=== PATIENT | male | born 1960 | race Caucasian/White ===

== ENCOUNTER 2016-06-22 16:00 | Inpatient (IN) | payer MEDICARE ==
[~2016-06-22] VITALS: Ht 182.9 cm; Wt 82.0 kg
[2016-06-22] MEDS ORDERED: DIPH,PERTUSS(ACELL),TET VAC/PF 0.5 ML IM-VACC ONE ×2 (16:30→16:49)
[2016-06-22] MEDS ORDERED: KETOROLAC 30 MG/1 ML IM ONE (16:30)
[2016-06-22] MEDS ORDERED: KETOROLAC 30 MG/1 ML ONE (16:49)
[2016-06-22] MEDS ORDERED: D5%-0.45% NACL 1,000 ML IV ONE (18:12)
[2016-06-22] MEDS ORDERED: ZOLP10TA PO (18:20)
[2016-06-22] MEDS ORDERED: HYDR10TA4 PO (18:20)
[2016-06-22] MEDS ORDERED: [UNRECOGNIZED DRUG - CODE] PO (18:20)
[2016-06-22] MEDS ORDERED: DIVA500T2 PO (18:20)
[2016-06-22] MEDS ORDERED: DIAZ5TAB PO (18:20)
[2016-06-22] MEDS ORDERED: CHLO100T6 PO (18:20)
[2016-06-22] MEDS ORDERED: SODIUM CHLORIDE FLUSH 10ML SYR IVF ONE (18:30)
[2016-06-22] MEDS ORDERED: SODIUM CHLORIDE FLUSH 10ML SYR IVF PRN (18:30)
[2016-06-22] MEDS ORDERED: ONDANSETRON 2MG/ML, 2ML IVPush PRN (18:30)
[2016-06-22] MEDS ORDERED: HYDROmorphone 1 MG/ML, 1ML IVPush PRN (18:30)
[2016-06-22] MEDS ORDERED: PROMETHAZINE 25 MG/ML, 1ML IM PRN (18:30)
[2016-06-22] MEDS ORDERED: SODIUM CHLORIDE 0.9% 1,000ML IVBOLUS ONE (19:00)
[2016-06-23] MEDS ORDERED: ONDANSETRON 2MG/ML, 2ML IVPush PRN (01:30)
[2016-06-23 01:34] VITALS: BP 111/75
[2016-06-23] MEDS: MORPHINE SULFATE 4 MG/ML, 1ML IVPush PRN ×5 (03:07→21:59)
[2016-06-23] MEDS ORDERED: DIVA500T2 PO (03:53)
[2016-06-23] MEDS ORDERED: CHLO100T6 PO (03:53)
[2016-06-23 06:55] VITALS: BP 136/83
[2016-06-23] MEDS: hydrOXyzine 10MG TABLET PO SCH ×3 (10:49→22:00)
[2016-06-23] MEDS: DIVALPROEX 500 MG TABLET.DR PO SCH ×2 (10:50→22:00)
[2016-06-23 11:16] LABS: DAU SCREEN DISCLAIMER
[2016-06-23 14:13] VITALS: BP 154/89
[2016-06-23 15:37] LABS: HEMOGLOBIN 13.2 g/dL (13.7-18.0)
[2016-06-23 15:50] LABS: BLOOD UREA NITROGEN 10 mg/dL (7-18)
[2016-06-23 18:23] VITALS: BP 143/92
[2016-06-23] MEDS ORDERED: ZOLPIDEM 10MG TABLET PO SCH (21:00)
[2016-06-23] MEDS ORDERED: chlorproMAZINE 200MG TABLET PO SCH (21:00)
[2016-06-23] MEDS ORDERED: DIAZEPAM 5 MG TABLET PO SCH (21:00)
[2016-06-24 00:32] VITALS: BP 101/60
[2016-06-24] MEDS: MORPHINE SULFATE 4 MG/ML, 1ML IVPush PRN ×2 (04:16→09:19)
[2016-06-24 07:03] VITALS: BP 120/80
[2016-06-24 07:15] VITALS: BP 133/76
[2016-06-24] MEDS: DIVALPROEX 500 MG TABLET.DR PO SCH ×2 (08:00→20:54)
[2016-06-24] MEDS: hydrOXyzine 10MG TABLET PO SCH ×3 (08:01→20:54)
[2016-06-24] MEDS ORDERED: MIDAZOLAM 1 MG/ML, 2ML ONE (12:15)
[2016-06-24] MEDS ORDERED: FENTANYL PF 250 MCG/5ML ONE (12:15)
[2016-06-24] MEDS ORDERED: OXYMETAZOLINE NASAL SPRAY 0.05%, 15ML ONE ×2 (12:46→12:51)
[2016-06-24] MEDS ORDERED: LIDOCAINE/PF 1%-EPI 1:200K, 30ML ONE (12:51)
[2016-06-24] MEDS ORDERED: BALANCED SALT OPHTH IRRIG SOLN 18ML ONE (12:51)
[2016-06-24] MEDS ORDERED: CHLORHEXIDINE GLUCONATE MOUTHWASH 0.12%, 473ML ONE (13:05)
[2016-06-24] MEDS ORDERED: PROPOFOL 10 MG/ML, 20ML ONE (13:10)
[2016-06-24] MEDS ORDERED: GLYCOPYRROLATE 0.2MG/1ML ONE (13:10)
[2016-06-24] MEDS ORDERED: CEFAZOLIN 1,000 MG ONE (13:10)
[2016-06-24] MEDS ORDERED: NEOSTIGMINE 1 MG/ML, 10ML ONE (13:10)
[2016-06-24] MEDS ORDERED: ROCURONIUM 10 MG/ML ONE (13:10)
[2016-06-24] MEDS ORDERED: CLINDAMYCIN 150 MG/ML, 6ML ONE (13:53)
[2016-06-24] MEDS ORDERED: FENTANYL PF 100 MCG/2ML ONE (16:10)
[2016-06-24] MEDS ORDERED: LABETALOL 5MG/ML, 20ML IV PRN (16:30)
[2016-06-24] MEDS ORDERED: ONDANSETRON 2MG/ML, 2ML IVPush PRN (16:30)
[2016-06-24] MEDS ORDERED: FENTANYL PF 100 MCG/2ML IV PRN (16:30)
[2016-06-24] MEDS ORDERED: OXYcodone 5 MG/5 ML ORAL.SOL UDC PO PRN (16:30)
[2016-06-24] MEDS ORDERED: PROMETHAZINE 25 MG/ML, 1ML IV PRN (16:30)
[2016-06-24] MEDS ORDERED: HYDROmorphone 1 MG/ML, 1ML IV PRN (16:30)
[2016-06-24] MEDS ORDERED: METOCLOPRAMIDE 5 MG/ML, 2ML IV PRN (16:30)
[2016-06-24] MEDS ORDERED: OXYcodone 5 MG/5 ML ORAL.SOL UDC ONE (16:59)
[2016-06-24 18:55] VITALS: BP 121/77
[2016-06-24] MEDS: POTASSIUM CHLORIDE 20 MEQ in D5%-0.45% NACL 1,000 ML IV SCH ×2 (19:30→20:54)
[2016-06-24] MEDS ORDERED: KETOROLAC 30 MG/1 ML IV PRN (19:30)
[2016-06-24] MEDS: OXYcodone/APAP 5/325MG TABLET PO PRN (20:54)
[2016-06-24] MEDS: DIAZEPAM 5 MG TABLET PO SCH (20:54)
[2016-06-24] MEDS: CEFAZOLIN PMX 2GM/100ML 100 ML IVPB SCH (21:01)
[2016-06-24] MEDS: CLINDAMYCIN PMX 900MG/50ML 50 ML IV SCH (22:07)
[2016-06-24 23:57] VITALS: BP 98/65
[2016-06-25] MEDS: OXYcodone/APAP 5/325MG TABLET PO PRN ×5 (01:07→20:40)
[2016-06-25 04:23] VITALS: BP 96/60
[2016-06-25] MEDS: CEFAZOLIN PMX 2GM/100ML 100 ML IVPB SCH (05:26)
[2016-06-25 05:33] LABS: HEMOGLOBIN 12.6 g/dL (13.7-18.0)
[2016-06-25 05:42] LABS: BLOOD UREA NITROGEN 15 mg/dL (7-18)
[2016-06-25] MEDS: CLINDAMYCIN PMX 900MG/50ML 50 ML IV SCH ×3 (06:14→21:47)
[2016-06-25 06:58] VITALS: BP 103/66
[2016-06-25] MEDS: DIVALPROEX 500 MG TABLET.DR PO SCH ×2 (08:29→20:40)
[2016-06-25] MEDS: hydrOXyzine 10MG TABLET PO SCH ×3 (08:31→20:40)
[2016-06-25 13:22] VITALS: BP 125/79
[2016-06-25] MEDS: D5%-0.45NACL+KCL 20MEQ 1,000 ML IV SCH (16:48)
[2016-06-25 18:30] VITALS: BP 110/67
[2016-06-25] MEDS: DIAZEPAM 5 MG TABLET PO SCH (20:40)
[2016-06-25] MEDS: chlorproMAZINE 200MG TABLET PO SCH (20:42)
[2016-06-26 03:19] VITALS: BP 99/61
[2016-06-26] MEDS: OXYcodone/APAP 5/325MG TABLET PO PRN ×2 (03:31→08:41)
[2016-06-26 05:22] LABS: HEMOGLOBIN 11.3 g/dL (13.7-18.0)
[2016-06-26 05:41] LABS: BLOOD UREA NITROGEN 8 mg/dL (7-18)
[2016-06-26] MEDS: D5%-0.45NACL+KCL 20MEQ 1,000 ML IV SCH ×2 (05:44→20:00)
[2016-06-26] MEDS: CLINDAMYCIN PMX 900MG/50ML 50 ML IV SCH ×2 (05:44→13:23)
[2016-06-26 07:17] VITALS: BP 104/66
[2016-06-26] MEDS: hydrOXyzine 10MG TABLET PO SCH ×3 (08:40→20:47)
[2016-06-26] MEDS: DIVALPROEX 500 MG TABLET.DR PO SCH ×2 (08:40→20:47)
[2016-06-26 13:07] VITALS: BP 101/72
[2016-06-26 18:36] VITALS: BP 120/68
[2016-06-26] MEDS: DIAZEPAM 5 MG TABLET PO SCH (20:47)
[2016-06-26] MEDS: chlorproMAZINE 200MG TABLET PO SCH (20:47)
[2016-06-27 00:48] VITALS: BP 116/76
[2016-06-27 07:54] VITALS: BP 124/83
[2016-06-27] MEDS: hydrOXyzine 10MG TABLET PO SCH ×3 (08:21→21:00)
[2016-06-27] MEDS: DIVALPROEX 500 MG TABLET.DR PO SCH ×2 (08:21→21:07)
[2016-06-27 14:36] VITALS: BP 128/75
[2016-06-27 20:00] VITALS: BP 114/70
[2016-06-27] MEDS: chlorproMAZINE 200MG TABLET PO SCH (21:00)
[2016-06-27] MEDS: DIAZEPAM 5 MG TABLET PO SCH ×2 (21:00→21:11)
[2016-06-27] MEDS: AMOXICILLIN/CLAV 875-125MG TABLET PO SCH (21:08)
[2016-06-28 02:55] VITALS: BP 150/73
[2016-06-28 06:44] VITALS: BP 110/67
[2016-06-28] MEDS: AMOXICILLIN/CLAV 875-125MG TABLET PO SCH (07:53)
[2016-06-28] MEDS: DIVALPROEX 500 MG TABLET.DR PO SCH (07:53)
[2016-06-28] MEDS: hydrOXyzine 10MG TABLET PO SCH (07:54)
[2016-06-28] MEDS ORDERED: AMOX1TAB64 PO (11:02)
[2016-06-28 14:00] VITALS: BP 109/68
[2016-06-28] MEDS ORDERED: PNEUMOCOCCAL 23 VACCINE IM-VACC ONE (15:00)
[2016-06-28] MEDS ORDERED: FLU VACC QS2016-17 (36MOS+)UP/PF 0.5 ML IM-VACC ONE (15:00)
== END 2016-06-28 15:17 | disposition home or self-care (01) | DRG 131 ==
LOC: ED 18:11 → EDIP 18:12 → ED 18:19 → 4NOR 19:47 → DCLOUNGE 06-28 15:00
PROVIDERS: ADMIT Otolaryngology Facial Plastic Surgery; ATTEND Otolaryngology Facial Plastic Surgery
PROC: 0NST04Z Reposition Right Mandible with Internal Fixation Device, Open Approach (ICD-10-PCS; 2016-06-24)
PROC: 0NSV04Z Reposition Left Mandible with Internal Fixation Device, Open Approach (ICD-10-PCS; 2016-06-24)
PROC: 0CDXXZ0 Extraction of Lower Tooth, Single, External Approach (ICD-10-PCS; principal; 2016-06-24 13:00)
DX: S02.6 Fracture of mandible (principal); E87.1 Hypo-osmolality and hyponatremia; S02.602A Fracture of unspecified part of body of left mandible, initial encounter for closed fracture; S02.611A Fracture of condylar process of right mandible, initial encounter for closed fracture; F15.90 Other stimulant use, unspecified, uncomplicated; F31.9 Bipolar disorder, unspecified; G47.00 Insomnia, unspecified; Z53.29 Procedure and treatment not carried out because of patient's decision for other reasons; G47.33 Obstructive sleep apnea (adult) (pediatric); J32.9 Chronic sinusitis, unspecified; K05.10 Chronic gingivitis, plaque induced; S50.311A Abrasion of right elbow, initial encounter; Y04.0XXA Assault by unarmed brawl or fight, initial encounter; Y93.9 Activity, unspecified; Y92.9 Unspecified place or not applicable; Z87.891 Personal history of nicotine dependence
CPT/HCPCS: 36415; 70450; 70486; 72110; 80048; 80307; 85025; 85610; 90471; 90715; 96372; C1713; J0690; J1885; J2250; J2704; J2710; J3010; J3480; J3490; J7030

== ENCOUNTER 2016-08-02 13:41 | Observation (INO) | payer MEDICARE ==
[~2016-08-02] VITALS: Ht 182.9 cm; Wt 80.1 kg
[~2016-08-02 13:41] MED LIST: AMOX1TAB64 PO; CHLO100T6 PO; DIAZ5TAB PO; DIVA500T2 PO; HYDR10TA4 PO; ZOLP10TA PO; [UNRECOGNIZED DRUG - CODE] PO
[2016-08-02] MEDS ORDERED: LORazepam 2 MG/ML, 1ML IVPush ONE (14:30)
[2016-08-02] MEDS ORDERED: NITROGLYCERIN SINGLE TAB 0.4 MG SL PRN (14:30)
[2016-08-02] MEDS ORDERED: ASPIRIN 81 MG TABLET CHEW PO ONE (14:30)
[2016-08-02] MEDS ORDERED: SODIUM CHLORIDE FLUSH 10ML SYR IVF ONE (14:30)
[2016-08-02 14:40] LABS: HEMOGLOBIN 13.1 g/dL (13.7-18.0)
[2016-08-02 14:51] LABS: ASPARTATE AMINO TRANSFERASE 16 U/L (15-37); BLOOD UREA NITROGEN 20 mg/dL (7-18)
[2016-08-02] MEDS ORDERED: LORazepam 2 MG/ML, 1ML ONE (15:01)
[2016-08-02] MEDS ORDERED: ASPIRIN 81 MG TABLET CHEW ONE (15:01)
[2016-08-02] MEDS ORDERED: NITROGLYCERIN SINGLE TAB 0.4 MG SL ONE (15:01)
[2016-08-02] MEDS ORDERED: SODIUM CHLORIDE FLUSH 10ML SYR IVF PRN (16:00)
[2016-08-02 18:26] VITALS: BP 103/64
[2016-08-02] MEDS ORDERED: ENOXAPARIN 40 MG/0.4 ML SQ SCH (19:30)
[2016-08-02] MEDS ORDERED: ACETAMINOPHEN 325 MG TABLET PO PRN (19:30)
[2016-08-02] MEDS ORDERED: ONDANSETRON 2MG/ML, 2ML IVP PRN (19:30)
[2016-08-02 19:59] VITALS: BP 113/74
[2016-08-02 20:18] LABS: IS PT STATUS REG ER OR PRE ER? NO
[2016-08-02] MEDS ORDERED: DIAZEPAM 5 MG TABLET PO SCH (21:00)
[2016-08-02] MEDS: hydrOXyzine 10MG TABLET PO SCH (22:03)
[2016-08-02] MEDS: DIVALPROEX 500 MG TABLET.DR PO SCH (22:03)
[2016-08-03] MEDS: HYDROcodone/APAP 5/325 TABLET PO PRN ×2 (00:34→17:38)
[2016-08-03 01:18] VITALS: BP 126/81
[2016-08-03 02:10] LABS: IS PT STATUS REG ER OR PRE ER? NO
[2016-08-03] MEDS ORDERED: LORazepam 2 MG/ML, 1ML IVPush PRN (03:30)
[2016-08-03] MEDS ORDERED: NICOTINE 21 MG/24 HR PATCH.TD24 TD ONE (03:30)
[2016-08-03 05:04] LABS: HEMOGLOBIN 12.8 g/dL (13.7-18.0)
[2016-08-03 05:16] LABS: ASPARTATE AMINO TRANSFERASE 12 U/L (15-37); BLOOD UREA NITROGEN 18 mg/dL (7-18)
[2016-08-03 06:54] VITALS: BP 112/75
[2016-08-03] MEDS: hydrOXyzine 10MG TABLET PO SCH ×2 (09:18→16:33)
[2016-08-03] MEDS: DIVALPROEX 500 MG TABLET.DR PO SCH (09:18)
[2016-08-03] MEDS ORDERED: REGADENOSON 0.4 MG/5 ML SYRINGE ONE (12:07)
[2016-08-03 15:36] VITALS: BP 130/84
== END 2016-08-03 18:33 | disposition home or self-care (01) ==
LOC: ED 15:35 → EDIP 15:51 → INTOOBSV 15:51 → SUATTDRO 17:02 → 5SO 18:12
PROVIDERS: ADMIT Internal Medicine; ATTEND Internal Medicine
DX: R07.9 Chest pain, unspecified (principal); G92 Toxic encephalopathy; D64.9 Anemia, unspecified; F31.9 Bipolar disorder, unspecified; G47.33 Obstructive sleep apnea (adult) (pediatric); F15.10 Other stimulant abuse, uncomplicated; F17.200 Nicotine dependence, unspecified, uncomplicated
CPT/HCPCS: 36415; 71010; 78452; 80053; 80061; 83880; 84443; 84484; 85025; 85610; 85730; 93005; 93017; 96372; 96374; 96376; 99285; A9502; C9898; G0378; J1650; J2060; J2785

== ENCOUNTER 2018-01-10 23:00 | Inpatient (IN) | payer OTHER, MEDICARE ==
[~2018-01-10] VITALS: Ht 182.9 cm; Wt 97.3 kg
[2018-01-10] MEDS ORDERED: MORPHINE SULFATE 4 MG/ML, 1ML ONE (23:28)
[2018-01-10] MEDS ORDERED: AMPICILLIN/SULBACTAM 1,500 MG in SODIUM CHLORIDE 0.9% 50 ML IV ONE (23:30)
[2018-01-10] MEDS ORDERED: MORPHINE SULFATE 4 MG/ML, 1ML IVPush PRN (23:30)
[2018-01-10] MEDS ORDERED: SODIUM CHLORIDE 0.9% 1,000ML IVBOLUS ONE (23:30)
[2018-01-10] MEDS ORDERED: SODIUM CHLORIDE FLUSH 10ML SYR IVF ONE (23:30)
[2018-01-10] MEDS ORDERED: VANCOMYCIN PER PHARMACY IV ONE (23:30)
[2018-01-10 23:33] LABS: MEAN CORPUSCULAR HEMOGLOBIN 29.6 pg (27.5-34.5); MEAN CORPUSCULAR HGB CONC 32.4 g/dL (33.2-36.2); MEAN CORPUSCULAR VOLUME 91.6 fL (81-97); MEAN PLATELET VOLUME 7.4 fL (7.4-10.4); PLATELET COUNT 180 x10^3/uL (130-400); RED BLOOD COUNT 3.94 x10^6/uL (4.38-5.82); RED CELL DISTRIBUTION WIDTH 14.7 % (9.4-14.8)
[2018-01-10 23:44] LABS: ALBUMIN 2.4 g/dL (3.4-5.0); ANION GAP 10 mmol/L (5-15); CHLORIDE 103 mmol/L (98-107); CREATININE 1.15 mg/dL (0.7-1.3)
[2018-01-10] MEDS ORDERED: PHARMACOKINETIC CONSULTATION MC ONE (23:45)
[2018-01-10 23:49] LABS: MD YES
[2018-01-10 23:53] LABS: BAND#(MANUAL) 1.19 x10^3/uL; BANDS%(MANUAL) 6 % (0-7); LYMPH#(MANUAL) 0.99 x10^3/uL (1-3.4); LYMPHS% (MANUAL) 5 % (22-44); MONOS#(MANUAL) 1.19 x10^3/uL (0.3-2.7); MONOS% (MANUAL) 6 % (2-9); SEG#(MANUAL) 16.43 x10^3/uL (1.8-6.8); SEGS% (MANUAL) 83 % (42-75)
[2018-01-10 23:54] LABS: <PLATELET ESTIMATE> ADEQUATE; <PLT MORPHOLOGY> NORMAL PLT MORPH; ANISOCYTOSIS 1+
[2018-01-11] MEDS ORDERED: VANCOMYCIN 2,000 MG in SODIUM CHLORIDE 0.9% 500 ML IV ONE
[2018-01-11] MEDS ORDERED: OMNIPAQUE 350 MG/ML, 100ML BOTTLE ONE (00:19)
[2018-01-11] MEDS ORDERED: ACETAMINOPHEN 325 MG TABLET PO PRN (01:00)
[2018-01-11] MEDS ORDERED: ONDANSETRON ODT 4 MG PO PRN (01:00)
[2018-01-11] MEDS ORDERED: POLYETHYLENE GLYCOL 17 GM PACKET PO PRN (01:00)
[2018-01-11] MEDS ORDERED: SODIUM CHLORIDE 0.9% 1,000ML IVBOLUS ONE (01:00)
[2018-01-11] MEDS ORDERED: ONDANSETRON 2MG/ML, 2ML IVPush PRN (01:00)
[2018-01-11] MEDS ORDERED: PROMETHAZINE 25 MG/ML, 1ML IM PRN (01:00)
[2018-01-11 02:22] VITALS: BP 97/64
[2018-01-11] MEDS: SODIUM CHLORIDE 0.9% 1,000 ML IV SCH ×3 (04:07→18:44)
[2018-01-11] MEDS ORDERED: TRAZ150T62 PO (04:58)
[2018-01-11] MEDS ORDERED: IBUP-1484 PO (04:59)
[2018-01-11 05:33] LABS: MEAN CORPUSCULAR HEMOGLOBIN 31.6 pg (27.5-34.5); MEAN CORPUSCULAR HGB CONC 34.3 g/dL (33.2-36.2); MEAN CORPUSCULAR VOLUME 92.3 fL (81-97); MEAN PLATELET VOLUME 8.2 fL (7.4-10.4); PLATELET COUNT 153 x10^3/uL (130-400); RED BLOOD COUNT 3.46 x10^6/uL (4.38-5.82); RED CELL DISTRIBUTION WIDTH 14.4 % (9.4-14.8)
[2018-01-11 05:43] LABS: ANION GAP 6 mmol/L (5-15); CALCIUM 7.1 mg/dL (8.5-10.1); CHLORIDE 109 mmol/L (98-107); CREATININE 0.96 mg/dL (0.7-1.3)
[2018-01-11 06:08] LABS: MD YES
[2018-01-11 06:15] LABS: <PLATELET ESTIMATE> ADEQUATE; <PLT MORPHOLOGY> NORMAL PLT MORPH; ANISOCYTOSIS 1+; LYMPH#(MANUAL) 2.23 x10^3/uL (1-3.4); LYMPHS% (MANUAL) 14 % (22-44); MONOS#(MANUAL) 0.95 x10^3/uL (0.3-2.7); MONOS% (MANUAL) 6 % (2-9); SEG#(MANUAL) 12.72 x10^3/uL (1.8-6.8); SEGS% (MANUAL) 80 % (42-75)
[2018-01-11] MEDS: AMPICILLIN/SULBACTAM 1,500 MG in SODIUM CHLORIDE 0.9% 50 ML IV SCH ×3 (06:31→18:43)
[2018-01-11] MEDS: ENOXAPARIN 40 MG/0.4 ML SQ SCH (06:32)
[2018-01-11 07:23] VITALS: BP 87/54
[2018-01-11] MEDS ORDERED: CHLORPROMAZINE 100MG TAB PO SCH ×2 (09:00→21:00)
[2018-01-11] MEDS: SODIUM CHLORIDE 0.9% 500 ML IV SCH ×2 (09:30→10:30)
[2018-01-11 11:38] VITALS: BP 98/64
[2018-01-11 15:09] VITALS: BP 107/67
[2018-01-11 19:09] VITALS: BP 112/72
[2018-01-11] MEDS ORDERED: DIVALPROEX 500 MG TABLET.DR PO SCH (21:00)
[2018-01-11] MEDS ORDERED: TRAZODONE 50MG TABLET PO SCH (21:00)
[2018-01-11] MEDS: KETOROLAC 30 MG/1 ML IV PRN (22:07)
[2018-01-12] MEDS: AMPICILLIN/SULBACTAM 1,500 MG in SODIUM CHLORIDE 0.9% 50 ML IV SCH ×3 (00:32→12:30)
[2018-01-12 01:34] VITALS: BP 95/58
[2018-01-12 05:19] LABS: MEAN CORPUSCULAR HEMOGLOBIN 31.5 pg (27.5-34.5); MEAN CORPUSCULAR HGB CONC 33.9 g/dL (33.2-36.2); MEAN CORPUSCULAR VOLUME 93.1 fL (81-97); MEAN PLATELET VOLUME 8.6 fL (7.4-10.4); PLATELET COUNT 172 x10^3/uL (130-400); RED BLOOD COUNT 3.45 x10^6/uL (4.38-5.82)
[2018-01-12 05:27] LABS: ALBUMIN 1.7 g/dL (3.4-5.0); ANION GAP 11 mmol/L (5-15); CALCIUM 7.4 mg/dL (8.5-10.1); CHLORIDE 110 mmol/L (98-107)
[2018-01-12 05:43] LABS: MD YES
[2018-01-12 05:50] LABS: <PLATELET ESTIMATE> ADEQUATE; ANISOCYTOSIS 1+; BAND#(MANUAL) 1.71 x10^3/uL; BANDS%(MANUAL) 11 % (0-7); EOS#(MANUAL) 0.16 x10^3/uL (0.0-0.4); EOS% (MANUAL) 1 % (1-7); LARGE PLATELETS 1+; LYMPH#(MANUAL) 3.26 x10^3/uL (1-3.4); LYMPHS% (MANUAL) 21 % (22-44); METAMYELOCYTES# (MANUAL) 0.16 x10^3/uL (0-0); METAMYELOCYTES% (MANUAL) 1 % (0-1); MONOS#(MANUAL) 0.47 x10^3/uL (0.3-2.7); MONOS% (MANUAL) 3 % (2-9); SEG#(MANUAL) 9.77 x10^3/uL (1.8-6.8); SEGS% (MANUAL) 63 % (42-75)
[2018-01-12] MEDS: ENOXAPARIN 40 MG/0.4 ML SQ SCH (06:05)
[2018-01-12] MEDS: SODIUM CHLORIDE 0.9% 1,000 ML IV SCH (06:06)
[2018-01-12] MEDS: KETOROLAC 30 MG/1 ML IV PRN (06:06)
[2018-01-12 09:59] VITALS: BP 104/66
[2018-01-12] MEDS ORDERED: AMOX1TAB64 PO (11:40)
== END 2018-01-12 14:28 | disposition home or self-care (01) | DRG 602 ==
LOC: ED 23:14 → EDIP 01-11 00:41 → SUATTDRO 01-11 00:46 → 3NE 01-11 02:13
PROVIDERS: ADMIT Hospitalist; ATTEND Family Medicine
DX: L03.114 Cellulitis of left upper limb (principal); E43 Unspecified severe protein-calorie malnutrition; E87.1 Hypo-osmolality and hyponatremia; D64.9 Anemia, unspecified; F17.210 Nicotine dependence, cigarettes, uncomplicated; I95.9 Hypotension, unspecified; D72.829 Elevated white blood cell count, unspecified; S52.042A Displaced fracture of coronoid process of left ulna, initial encounter for closed fracture; F31.9 Bipolar disorder, unspecified; F41.1 Generalized anxiety disorder; M19.90 Unspecified osteoarthritis, unspecified site; Y99.8 Other external cause status; Z79.899 Other long term (current) drug therapy; Y93.89 Activity, other specified; Y92.89 Other specified places as the place of occurrence of the external cause; Z68.29 Body mass index [BMI] 29.0-29.9, adult
CPT/HCPCS: 36415; 80048; 82040; 83605; 83735; 84100; 84145; 85025; 87040; 96361; 96365; 96375; G0378; J1650; J1885; J3370; Q9967; J0295; J7030; J7040

== ENCOUNTER 2018-02-07 12:03 | Emergency (ER) | payer MEDICARE, OTHER ==
[~2018-02-07] VITALS: Ht 177.8 cm; Wt 80.0 kg
[~2018-02-07 12:03] MED LIST changes: +IBUP-1484 PO; +TRAZ150T62 PO
[2018-02-07] MEDS ORDERED: SODIUM CHLORIDE FLUSH 10ML SYR IVF ONE (13:00)
[2018-02-07] MEDS ORDERED: SODIUM CHLORIDE 0.9% 1,000ML IVBOLUS ONE (13:00)
[2018-02-07 13:12] LABS: BASOPHILS # (AUTO) 0.07 x10^3/uL (0-0.1); BASOPHILS % (AUTO) 1 % (0-1); EOSINOPHILS # (AUTO) 0.11 x10^3/uL (0-0.4); EOSINOPHILS % (AUTO) 2 % (1-7); LYMPHOCYTES # (AUTO) 1.28 x10^3/uL (1-3.4); LYMPHOCYTES % (AUTO) 22 % (22-44); MD NO; MEAN CORPUSCULAR HEMOGLOBIN 30.4 pg (27.5-34.5); MEAN CORPUSCULAR HGB CONC 33.9 g/dL (33.2-36.2); MEAN CORPUSCULAR VOLUME 89.5 fL (81-97); MEAN PLATELET VOLUME 7.7 fL (7.4-10.4); MONOCYTES # (AUTO) 0.98 x10^3/uL (0.2-0.8); MONOCYTES % (AUTO) 17 % (2-9); NEUTROPHILS # (AUTO) 3.43 x10^3/uL (1.8-6.8); NEUTROPHILS % (AUTO) 58 % (42-75); PLATELET COUNT 273 x10^3/uL (130-400); RED BLOOD COUNT 3.38 x10^6/uL (4.38-5.82)
[2018-02-07 13:15] LABS: ALANINE AMINOTRANSFERASE 23 U/L (12-78); ALBUMIN 2.1 g/dL (3.4-5.0); ANION GAP 4 mmol/L (5-15); CALCIUM 7.9 mg/dL (8.5-10.1); CHLORIDE 108 mmol/L (98-107); SALICYLATE LEVEL 2.4 mg/dL (2.8-20.0)
[2018-02-07 13:26] LABS: ALKALINE PHOSPHATASE 67 U/L (45-117); BILIRUBIN,TOTAL 0.2 mg/dL (0.2-1.0); CREATININE 1.15 mg/dL (0.7-1.3); TOTAL PROTEIN 7.2 g/dL (6.4-8.2)
[2018-02-07 13:40] LABS: ACETAMINOPHEN < 2 mcg/mL (10-30)
[2018-02-07 15:24] VITALS: BP 111/71
[2018-02-07 15:53] LABS: MICROSCOPIC NOT IND
[2018-02-07 16:00] LABS: CULTURE INDICATED? NO
[2018-02-07 16:05] LABS: AMPHETAMINE SCREEN, URINE Positive (Negative); BARBITURATE SCREEN, URINE Negative (Negative); BENZODIAZEPINE SCREEN, URINE Negative (Negative); CANNABINOID SCREEN, URINE Negative (Negative); COCAINE SCREEN, URINE Negative (Negative); METHADONE SCREEN, URINE Negative (Negative); OPIATE SCREEN, URINE Negative (Negative)
== END 2018-02-07 16:15 | disposition home or self-care (01) ==
LOC: ED 14:35
DX: F32.9 Major depressive disorder, single episode, unspecified (principal); T43.3X5A Adverse effect of phenothiazine antipsychotics and neuroleptics, initial encounter; F41.1 Generalized anxiety disorder; F17.210 Nicotine dependence, cigarettes, uncomplicated; Z90.89 Acquired absence of other organs; Y92.89 Other specified places as the place of occurrence of the external cause
CPT/HCPCS: 36415; 80053; 80307; 80329; 81003; 84443; 85025; 93005; 99285; J7030; G0480

== ENCOUNTER 2019-04-13 12:29 | Emergency (ER) | payer MEDICARE, OTHER ==
[~2019-04-13] VITALS: Ht 182.9 cm; Wt 95.0 kg
[~2019-04-13 12:29] MED LIST changes: -IBUP-1484 PO; +IBUP-1902 PO
[2019-04-13] MEDS ORDERED: SODIUM CHLORIDE 0.9% 1,000 ML IV ONE (12:40)
[2019-04-13] MEDS ORDERED: SODIUM CHLORIDE 0.9% 1,000ML IVBOLUS ONE (13:00)
[2019-04-13] MEDS ORDERED: DIPH,PERTUSS(ACELL),TET VAC/PF 0.5 ML IM-VACC ONE ×2 (13:00→13:19)
[2019-04-13 13:01] LABS: BASOPHILS # (AUTO) 0.03 x10^3/uL (0-0.1); BASOPHILS % (AUTO) 1 % (0-1); EOSINOPHILS # (AUTO) 0.11 x10^3/uL (0-0.4); EOSINOPHILS % (AUTO) 2 % (1-7); LYMPHOCYTES # (AUTO) 1.37 x10^3/uL (1-3.4); LYMPHOCYTES % (AUTO) 19 % (22-44); MD NO; MEAN CORPUSCULAR HEMOGLOBIN 32.5 pg (27.5-34.5); MEAN CORPUSCULAR HGB CONC 33.9 g/dL (33.2-36.2); MEAN CORPUSCULAR VOLUME 95.9 fL (81-97); MEAN PLATELET VOLUME 7.4 fL (7.4-10.4); MONOCYTES # (AUTO) 0.74 x10^3/uL (0.2-0.8); MONOCYTES % (AUTO) 10 % (2-9); NEUTROPHILS # (AUTO) 5.01 x10^3/uL (1.8-6.8); NEUTROPHILS % (AUTO) 69 % (42-75); PLATELET COUNT 255 x10^3/uL (130-400); RED BLOOD COUNT 4.56 x10^6/uL (4.38-5.82); RED CELL DISTRIBUTION WIDTH 14.4 % (9.4-14.8)
[2019-04-13 13:22] LABS: ALANINE AMINOTRANSFERASE 17 U/L (12-78); ALBUMIN 3.5 g/dL (3.4-5.0); ANION GAP 5 mmol/L (5-15); CALCIUM 8.9 mg/dL (8.5-10.1); CHLORIDE 107 mmol/L (98-107); CREATININE 1.14 mg/dL (0.7-1.3); SALICYLATE LEVEL 2.7 mg/dL (2.8-20.0)
[2019-04-13 13:24] LABS: ALKALINE PHOSPHATASE 77 U/L (45-117); BILIRUBIN,TOTAL 0.7 mg/dL (0.2-1.0); TOTAL PROTEIN 7.3 g/dL (6.4-8.2)
--- NOTE | 2019-04-13 13:25 | NUR ---
sister Sadaf [phone]
--- NOTE | 2019-04-13 13:45 | NUR ---
REPORT TO TORSTEN RN PT SLEEPY AROUSES EASY TO VERBAL FOLLOWS COMMANDS COOPERATIVE
[2019-04-13 14:12] VITALS: BP 121/80
--- NOTE | 2019-04-13 14:40 | NUR ---
DL CALLED TO CHECK ON STATUS. PT OK'D INFORMATION TO BE RELEASED TO DL. DL STATES THAT IF AND WHEN PT TO BE DC'D TO CALL HER FOR A RIDE.
[2019-04-13 15:51] LABS: MICROSCOPIC NOT IND
[2019-04-13 16:00] LABS: AMPHETAMINE SCREEN, URINE Negative (Negative); BARBITURATE SCREEN, URINE Negative (Negative); BENZODIAZEPINE SCREEN, URINE Negative (Negative); CANNABINOID SCREEN, URINE Positive (Negative); COCAINE SCREEN, URINE Negative (Negative); METHADONE SCREEN, URINE Negative (Negative); OPIATE SCREEN, URINE Negative (Negative)
[2019-04-13 16:07] LABS: CULTURE INDICATED? NO
== END 2019-04-13 17:31 | disposition home or self-care (01) ==
LOC: ED 15:19
DX: S01.01XA Laceration without foreign body of scalp, initial encounter (principal); T43.211A Poisoning by selective serotonin and norepinephrine reuptake inhibitors, accidental (unintentional), initial encounter; R41.82 Altered mental status, unspecified; W18.39XA Other fall on same level, initial encounter; Y93.89 Activity, other specified; Y99.8 Other external cause status; Y92.89 Other specified places as the place of occurrence of the external cause
CPT/HCPCS: 12001; 36415; 70450; 71045; 80053; 80307; 81003; 85025; 90471; 90715; 93005; 96360; 96361; 99284; J7030

== ENCOUNTER 2019-07-27 23:28 | Emergency (ER) | payer MEDICAID, MEDICARE ==
[~2019-07-27] VITALS: Ht 182.9 cm; Wt 73.8 kg
[~2019-07-27 23:28] MED LIST changes: +HYDR-2995 PO; -HYDR10TA4 PO
[2019-07-27 23:29] VITALS: BP 112/70
[2019-07-27] MEDS ORDERED: IBUPROFEN 800 MG TABLET PO STA (23:41)
[2019-07-28] MEDS ORDERED: IBUPROFEN 800 MG TABLET ONE (00:32)
== END 2019-07-28 00:39 | disposition home or self-care (01) ==
LOC: ED 23:59
DX: G89.11 Acute pain due to trauma (principal); M25.562 Pain in left knee; F17.210 Nicotine dependence, cigarettes, uncomplicated; X58.XXXA Exposure to other specified factors, initial encounter; Y93.89 Activity, other specified; Y92.89 Other specified places as the place of occurrence of the external cause; Y99.8 Other external cause status
CPT/HCPCS: 99283

== ENCOUNTER 2019-11-04 21:18 | Emergency (ER) | payer MEDICAID, MEDICARE ==
[~2019-11-04] VITALS: Ht 182.9 cm; Wt 82.0 kg
[2019-11-04 21:28] VITALS: BP 113/81
[2019-11-04] MEDS ORDERED: ACETAMINOPHEN 500 MG TABLET PO ONE (21:30)
[2019-11-04] MEDS ORDERED: METHOCARBAMOL 750 MG TABLET PO ONE (21:30)
[2019-11-04] MEDS ORDERED: ACETAMINOPHEN 500 MG TABLET ONE (21:53)
[2019-11-04] MEDS ORDERED: METHOCARBAMOL 750 MG TABLET ONE (21:53)
== END 2019-11-04 22:35 | disposition home or self-care (01) ==
LOC: ED 21:36
DX: G89.11 Acute pain due to trauma (principal); R07.89 Other chest pain; M25.531 Pain in right wrist; K08.89 Other specified disorders of teeth and supporting structures; Z90.89 Acquired absence of other organs; Y04.8XXA Assault by other bodily force, initial encounter; Y93.89 Activity, other specified; Y92.410 Unspecified street and highway as the place of occurrence of the external cause; Y99.8 Other external cause status
CPT/HCPCS: 99283

== ENCOUNTER 2020-11-05 19:49 | Emergency (ER) | payer MEDICARE ==
[~2020-11-05] VITALS: Ht 182.9 cm; Wt 88.0 kg
[2020-11-05 19:53] VITALS: BP 154/83
== END 2020-11-05 20:58 | disposition home or self-care (01) ==
LOC: ED 20:50
DX: K02.9 Dental caries, unspecified (principal)
CPT/HCPCS: 99283